=== PATIENT | female | born 1985 | race Two or more races ===

== ENCOUNTER 2019-07-06 10:45 | Outpatient (CLI) | payer OTHER ==
[2019-07-09] MEDS ORDERED: FLONASE16 GM (10:43)
== END 2019-07-06 10:52 | disposition home or self-care (01) ==
LOC: TOM 10:45
DX: Q79.0 Congenital diaphragmatic hernia (principal); I10 Essential (primary) hypertension

== ENCOUNTER 2019-07-11 08:17 | Day surgery (SDC) | payer OTHER ==
[~2019-07-11 08:17] MED LIST: FLONASE16 GM
[2019-07-11] MEDS ORDERED: PERCOCET 5-3251 EACH PO (16:05)
[2019-07-11] MEDS ORDERED: NEURONTIN800 MG PO (16:05)
[2019-07-11] MEDS ORDERED: NEXIUM 24HR20 MG PO (16:05)
[2019-07-11] MEDS ORDERED: POLY119PG PO (16:06)
== END 2019-07-11 17:50 | disposition home or self-care (01) ==
LOC: CIR.AMB 08:17
DX: K44.9 Diaphragmatic hernia without obstruction or gangrene (principal); K43.2 Incisional hernia without obstruction or gangrene

== ENCOUNTER 2024-08-23 05:33 | Inpatient (IN) | payer OTHER ==
[2024-08-20 09:49] VITALS: BP 135/88
[2024-08-20 10:06] LABS: PH,URINE 5.5 (5.0-8.0); URINE APPEARANCE Clear; URINE BILIRRUBIN Negative (NEGATIVE); URINE BLOOD Trace; URINE COLOR Yellow; URINE GLUCOSE Negative (NEGATIVE); URINE KETONE Negative (NEGATIVE); URINE LEUKOCYTE Negative; URINE NITRATE Negative; URINE PROTEIN Negative (NEGATIVE)
[2024-08-20 10:07] LABS: HEMATOCRIT 34.9 % (36.0-45.00); HEMOGLOBIN 11.6 g/dL (12.0-15.00); MEAN CELL VOLUME 86.6 fL (80.00-100.00); MEAN CORPUSCULAR HEMOGLOBIN 28.7 pg (27.00-32.0); MEAN CORPUSCULAR HGB CONC 33.1 g/dl (32.0-36.0); PLATELET COUNT 210 K/uL (150-450); RED BLOOD COUNT 4.03 M/uL (4.00-6.00); RED CELL DISTRIBUTION WIDTH 14.7 % (11.5-14.5)
[2024-08-20 10:10] LABS: URINE EPITHELIAL CELLS 6.6 uL (0.0-38.8); URINE RBC 29.3 uL (0.0-20.8); URINE WBC 5.8 uL (0.0-23.2)
[2024-08-20 10:15] LABS: URINE CAST 0.29 uL (0.0-1.40)
[2024-08-20 10:22] LABS: INR 1.02; PARTIAL THROMBOPLASTIN TIME 26.2 SECONDS (22.0-34.0); PROTHROMBIN TIME 11.1 SECONDS (9.0-11.5)
[2024-08-20 10:49] LABS: ALBUMIN 3.5 gm/dL (3.4-5.0); BILIRUBIN TOTAL 0.32 mg/dL (0.3-1.2); CALCIUM 8.3 mg/dL (8.5-10.1); CREATININE SERUM 0.58 mg/dL (0.55-1.02); GFR 116.34; GLOBULINA 3.2 G/DL (2.4-3.5); POTASSIUM 4.14 mEq/L (3.5-5.1); TOTAL PROTEIN 6.7 gm/dL (6.4-8.2)
[~2024-08-23] VITALS: Ht 170.2 cm; Wt 108.0 kg
[~2024-08-23 05:33] MED LIST changes: +MAGNESIUM500 MG PO; +MELATONIN10 MG PO; +NEURONTIN800 MG PO; +NEXIUM 24HR20 MG PO; +PERCOCET 5-3251 EACH PO; +POLY119PG PO; +VITAMIN D31250 MC1
[2024-08-23] MEDS ORDERED: CYCLOBENZAPRINE HCL 5 MG TABLET PO SCH (07:39)
[2024-08-23] MEDS ORDERED: ONDANSETRON HCL 2 MG/ML VIAL IV PRN (07:45)
[2024-08-23] MEDS ORDERED: ENALAPRILAT DIHYDRATE 1.25 MG/ML VIAL IV PRN (07:45)
[2024-08-23] MEDS ORDERED: CEFAZOLIN SODIUM 1,000 MG VIAL IV ONE (08:45)
[2024-08-23] MEDS ORDERED: DEXAMETHASONE SODIUM PHOSP/PF 10 MG/ML VIAL IV ONE (08:45)
[2024-08-23] MEDS ORDERED: Calcium Carbonate 1 TAB TABLET PO SCH (09:00)
[2024-08-23] MEDS ORDERED: TRAMADOL HCL 50 MG TABLET PO SCH (09:00)
[2024-08-23] MEDS ORDERED: ACETAMINOPHEN 500 MG GEL..CAP PO SCH (09:00)
[2024-08-23] MEDS ORDERED: MORPHINE SULFATE 4 MG/ML VIAL IV ONE (11:00)
[2024-08-23 16:00] VITALS: BP 123/64; O2SAT 98
[2024-08-23] MEDS ORDERED: PANTOPRAZOLE SODIUM 40 MG/VIAL VIAL IV PUSH SCH (21:00)
[2024-08-24 01:37] VITALS: BP 120/59; O2SAT 100
[2024-08-24 08:00] VITALS: BP 118/70; O2SAT 100
[2024-08-24] MEDS ORDERED: LEVOTHYROXINE SODIUM 175 MCG TABLET PO SCH (09:00)
== END 2024-08-24 12:29 | disposition home or self-care (01) | DRG 627 ==
LOC: CIR.AMB 05:33 → SURH 11:10 → O/R 11:10 → SURH 11:13 → O/R 13:55 → SURH 13:57
PROVIDERS: ADMIT Otolaryngology; ATTEND Otolaryngology
PROC: 0GTH0ZZ Resection of Right Thyroid Gland Lobe, Open Approach (ICD-10-PCS; principal; 2024-08-23 07:00)
DX: C73 Malignant neoplasm of thyroid gland (principal); Z20.822 Contact with and (suspected) exposure to COVID-19